=== PATIENT | female | born 1970 | race Two or more races ===

== ENCOUNTER 2022-05-25 17:54 | Emergency (ER) | payer OTHER ==
[~2022-05-25] VITALS: Ht 167.6 cm; Wt 70.3 kg
[2022-05-25 18:22] VITALS: BP 117/77
--- NOTE | 2022-05-25 19:14 | NUR ---
Patient discharged to home in stable condition. Written and verbal after care instructions given. Patient verbalizes understanding of instruction. Pt given crutch instruction and zohaib wrap compression. Pt demonstrates gait training understanding.
== END 2022-05-25 19:14 | disposition home or self-care (01) ==
LOC: ER 18:10
DX: S93.402A Sprain of unspecified ligament of left ankle, initial encounter (principal); J45.909 Unspecified asthma, uncomplicated; E03.9 Hypothyroidism, unspecified; Z88.8 Allergy status to other drugs, medicaments and biological substances; X58.XXXA Exposure to other specified factors, initial encounter; Y93.89 Activity, other specified; Y92.89 Other specified places as the place of occurrence of the external cause; Y99.8 Other external cause status
CPT/HCPCS: 73610-TC; 73630-TC